=== PATIENT | female | born 1965 | race Caucasian/White ===

== ENCOUNTER 2018-05-16 21:43 | Emergency (ER) | payer OTHER ==
[2018-05-16] MEDS ORDERED: Acetaminophen 500 MG TAB ONE (22:27)
--- NOTE | 2018-05-16 23:00 | RAD ---
RIGHT FEMUR TWO VIEWS: HISTORY: Injury. Right thigh pain. FINDINGS: The right femur is intact. POS: [facility]
== END 2018-05-16 23:01 | disposition home or self-care (01) ==
LOC: ERS 21:43
DX: S70.11XA Contusion of right thigh, initial encounter (principal); I10 Essential (primary) hypertension; K21.9 Gastro-esophageal reflux disease without esophagitis; W55.22XA Struck by cow, initial encounter

== ENCOUNTER 2020-05-17 15:43 | Emergency (ER) | payer OTHER ==
[2020-05-17] MEDS ORDERED: Morphine 4 MG/ML VIAL ONE (16:47)
--- NOTE | 2020-05-17 17:55 | RAD ---
LEFT FOREARM: 05/17/20 Two views. HISTORY: Fall with injury. There is a predominantly transverse but mildly comminuted and displaced fracture of the distal radius . There is dorsal displacement of the distal fragment. Ulna appears intact. IMPRESSION: Fracture distal radius. POS: [facility]
--- NOTE | 2020-05-17 19:50 | RAD ---
Left forearm 2 views HISTORY: Fracture. COMPARISON: Earlier exam on the same date. FINDINGS: There is now anatomic alignment of the comminuted distal radial fracture with mild remainin g impaction and extensive comminution. Nondisplaced ulnar styloid avulsion fracture now better visualized. Overlying fiberglass splint now in place. Absence of the trapezium may be postoperative. IMPRESSION : Interval reduction of the displacement of the distal radial fracture. Neutral tilt. Ulnar styloid base fracture. Presumed surgical absence of the trapezium.
== END 2020-05-17 21:14 | disposition home or self-care (01) ==
LOC: ERS 15:43
DX: S52.502A Unspecified fracture of the lower end of left radius, initial encounter for closed fracture (principal); S52.612A Displaced fracture of left ulna styloid process, initial encounter for closed fracture; I10 Essential (primary) hypertension; K21.9 Gastro-esophageal reflux disease without esophagitis; Z79.899 Other long term (current) drug therapy; W18.30XA Fall on same level, unspecified, initial encounter
CPT/HCPCS: 25605; 96374; 99152; J2270

== ENCOUNTER 2020-05-22 12:19 | Outpatient (CLI) | payer OTHER, SELFPAY ==
[2020-05-23 01:19] LABS: SARS-CoV-2 PCR by NAA Not Detected (NotDetected)
== END 2020-05-22 12:20 | disposition home or self-care (01) ==
LOC: LABBT 12:19
PROVIDERS: ATTEND Orthopaedic Surgery
DX: S52.502A Unspecified fracture of the lower end of left radius, initial encounter for closed fracture (principal); Z20.822 Contact with and (suspected) exposure to COVID-19
CPT/HCPCS: 87635; U0003; U0005

== ENCOUNTER 2020-05-25 07:20 | Day surgery (SDC) | payer SELFPAY ==
[2020-05-24 11:22] VITALS: BMI 34.1
[2020-05-25] MEDS ORDERED: Dexmedetomidine 200 MCG/2 ML VIAL ONE (08:56)
[2020-05-25] MEDS ORDERED: Fentanyl 100 MCG/2 ML VIAL ONE (08:57)
[2020-05-25] MEDS ORDERED: Midazolam HCl 2 mg/2 ml Vial ONE (08:57)
[2020-05-25] MEDS ORDERED: PROPOFOL 200 MG/20 ML VIAL ONE (09:46)
[2020-05-25] MEDS ORDERED: Ondansetron PF 4 MG/2 ML Vial ONE (09:46)
[2020-05-25] MEDS ORDERED: Dexamethasone 20 MG/5 ML VIAL ONE (09:46)
[2020-05-25] MEDS ORDERED: Lidocaine 1% PF 5 ML VIAL ONE (09:46)
[2020-05-25] MEDS ORDERED: Ketorolac Tromethamine 30 MG/ML VIAL ONE (09:46)
[2020-05-25] MEDS ORDERED: ePHEDrine 50 MG/ML VIAL ONE (09:46)
[2020-05-25] MEDS ORDERED: Bupivacaine HCl 0.5%/Epinephrine 1:200,000/PF 30 ml Vial ONE (09:46)
--- NOTE | 2020-05-25 11:04 | OP ---
DATE OF PROCEDURE: 05/25/2020 PROCEDURE PERFORMED: Open reduction and internal fixation of left distal radius fracture. PREOPERATIVE DIAGNOSIS: Displaced left distal radius fracture. POSTOPERATIVE DIAGNOSIS: Displaced left distal radius fracture. COMPLICATIONS: None. ESTIMATED BLOOD LOSS: 50 mL. RECRUITMENT MANAGER: Ivonne Villanueva PA-C IMPLANT: Synthes volar distal radius plate with multiple locking and nonlocking screws. INDICATIONS FOR PROCEDURE: Ms. Alegre is a 54-year-old female who has fallen and fractured her distal radius. She has been indicated for open reduction and internal fixation of the distal radius to restore anatomic alignment and promote healing. Risks have been reviewed in detail. She has elected to proceed with the operation. DESCRIPTION OF PROCEDURE: Ms. Alegre was identified in the preoperative holding area. Her correct extremity was marked. She was carried to the operating room. She was positioned supine. General anesthesia was induced. A multidisciplinary time-out was performed. The left upper extremity was prepped and draped in sterile fashion. At this point, we began the procedure with a volar approach to the distal radius. We dissected down through the subcutaneous tissues to the FCR tendon. We then entered more deeply to the pronator quadratus. At this point, the quadratus was elevated from the bone. This exposed the distal radius fracture, which was displaced. We elevated the tissues and cleared the bony fracture. We then reduced the fracture by pulling traction and flexion. We confirmed our reduction with intraoperative x-ray. We then applied a volar distal radius plate. Again, we checked this with x-ray. Once we had an anatomic reduction and our plate was placed appropriately, we placed multiple screws, locking and nonlocking, fixating the bone. We took final images. We thoroughly irrigated with copious lavage. We then closed in layers and placed a sterile splint. The patient was taken to the recovery room in good condition. The bakery assistant surgeon was responsible for positioning the patient, preparing the injured extremity, applying the tourniquet, and assisting in preparation for surgery. The bakery assistant was instrumental in reducing the injured limb by applying traction and reduction maneuvers as well as holding retractors and reduction tools. The bakery assistant also was instrumental in assisting in exposure throughout the operation using appropriate retractors. The bakery assistant participated in closure of the operative site as well as dressing application and splint application. Job ID: [id number]
--- NOTE | 2020-05-25 12:00 | RAD ---
EXAM: XR Wrist Lt 2 View DATE: 05/25/2020 9:30 AM INDICATION: Open reduction internal fixation of left wrist fracture COMPARISON: Left forearm radiograph dated May 17, 2020. FINDIN intraoperative fluoroscopic images of the left wrist were submitted. Total fluoroscopic t rosalia 7 seconds. Total exposure was 0.0521 mGy. There is improved fracture alignment with interval placement of a Low Profile plate and screw construct fixating the distal radial fracture. Fracture al ignment is near-anatomic. Instrumentation projects in the expected position. The nondisplaced ulnar styloid process fracture is unchanged in alignment. IMPRESSION:Postoperative left wrist.
== END 2020-05-25 12:20 | disposition home or self-care (01) ==
LOC: SDC 07:20
PROVIDERS: ATTEND Orthopaedic Surgery
DX: S52.502A Unspecified fracture of the lower end of left radius, initial encounter for closed fracture (principal); G89.18 Other acute postprocedural pain; E78.00 Pure hypercholesterolemia, unspecified; G43.909 Migraine, unspecified, not intractable, without status migrainosus; E07.9 Disorder of thyroid, unspecified; Z79.899 Other long term (current) drug therapy; Z88.5 Allergy status to narcotic agent; Z91.030 Bee allergy status; W00.0XXA Fall on same level due to ice and snow, initial encounter
CPT/HCPCS: 76000; C1713; J0690; J1100; J1885; J2250; J2405; J2704; J3010; J3490